=== PATIENT | female | born 1935 | race Caucasian/White ===

== ENCOUNTER 2017-10-15 09:31 | Observation (INO) ==
[2017-10-15] MEDS ORDERED: ASPIRIN 81 MG CHEWABLE TABLET PO ONE (09:36)
--- NOTE | 2017-10-15 09:39 | Emergency Department Report ---
Chest Pain HPI - General Stated Complaint: cp,left arm and neck aches Time Seen by Provider: 10/15/17 09:36 Source: patient, family Mode of arrival: ambulatory Limitations: no limitations - History of Present Illness HPI narrative: Patient is an 81-year-old female presents emergency room for evaluation of anterior chest pain with radiation to the neck and the left arm. Patient states these are the same symptoms she had greater than 10 years ago when she received her cardiac bypass. Symptoms started last night just before she went to bed however were very mild so she didn't think anything of it. This morning pain became sudden and severe 06/05 with radiation into her neck and left arm. Patient decided today to present to the ER for evaluation. Patient states pain is worse on movement and inspiration, no nausea or diaphoresis noted MD complaint: chest pain Occurred At: home Onset (ago): hour(s) Duration: constant Onset: during rest Pain location: substernal, left chest, right chest Severity: similar to previous episodes Severity scale (1-10): 10 Quality: aching Exacerbating factors: inspiration, movement - Related Data Home Medications Medication Instructions Recorded Confirmed Dabigatran Etexilate Mesylate 150 mg PO BID #0 02/25/16 08/07/17 [Pradaxa] raNITIdine HCl [Ranitidine HCl] 150 mg PO HS #0 02/25/16 08/07/17 Cholecalciferol (Vitamin D3) 1,000 unit PO DAILY 08/07/17 08/07/17 [Vitamin D3] Cyanocobalamin (Vitamin B-12) 2,500 mcg PO DAILY 08/07/17 08/07/17 [Vitamin B12] Duloxetine [Cymbalta] 60 mg PO DAILY 08/07/17 08/07/17 Gabapentin 300 mg PO HS PRN 08/07/17 08/07/17 Hydrocodone/APAP 5/325 [[place] 1 tab PO Q6H PRN 08/07/17 08/07/17 5/325] Metoprolol Tartrate [Lopressor] 25 mg PO BID 08/07/17 08/07/17 Mirtazapine [Remeron] 15 mg PO HS 08/07/17 08/07/17 Previous Rx's Medication Instructions Recorded Permethrin 5% Cream [Elimite] 60 gm TOP O #1 tube 08/07/17 Allergies Allergy/AdvReac Type Severity Reaction Status Date / Time Penicillins Allergy Unknown Verified 08/07/17 10:48 Iodinated Contrast- Oral and Allergy Swelling Verified 08/07/17 10:48 IV Dye Review of Systems Constitutional: Reports: weakness. Denies: fever, chills Eyes: Denies: eye pain, eye discharge ENT: Denies: throat pain, dental pain Cardiovascular: Reports: chest pain. Denies: palpitations Respiratory: Denies: cough, dyspnea, wheezes Gastrointestinal: Denies: abdominal pain, nausea, vomiting Genitourinary: Denies: urgency, dysuria Neurological: Reports: headache PFS Patient Stated Medical History Hearing Loss Yes Macular Degeneration Yes Coronary Artery Disease Yes Myocardial Infarction Yes Gastroesophageal Reflux Yes Disease Clotting Problems Yes: ON PRADAXA Other Infectious Yes: CURRENT BED BUGS Surgical History: Pacemaker - Social History Smoking status: Never smoker Substance use type: does not use Alcohol intake frequency: does not drink Physical Exam - General General appearance: alert, in no apparent distress - Eye Eye exam: Present: PERRL - ENT ENT exam: Present: normal oropharynx, mucous membranes moist - Neck Neck exam: Present: full ROM, trachea midline. Absent: tenderness - Chest Chest inspection: Present: symmetric chest wall rise, tenderness (patient is exquisitely tender to palpation of the costochondral cartilage on the anterior wall) - Respiratory Respiratory exam: Present: normal lung sounds bilaterally. Absent: respiratory distress, wheezes, stridor - Cardiovascular Cardiovascular exam: Present: regular rate, normal rhythm. Absent: normal heart sounds - Abdominal Exam Abdominal exam: Present: soft, normal bowel sounds. Absent: distention, tenderness - Back Exam Back exam: Present: normal inspection, full ROM. Absent: tenderness, CVA tenderness (R), CVA tenderness (L), muscle spasm, paraspinal tenderness - Skin Skin exam: Present: warm, dry - Neurological Exam Neurological exam: Present: alert, oriented X3 - Psychiatric Psychiatric exam: Present: normal affect, normal mood Chest Pain - Differential Diagnosis Likely: fracture of rib, pneumothorax, stable angina, unstable angina pectoris, atypical chest pain, st elevation myocardial infarction, costochondritis, chest pain, biliary colic Disposition Prescriptions: No Action raNITIdine HCl [Ranitidine HCl] 150 mg PO HS #0 Cyanocobalamin (Vitamin B-12) [Vitamin B12] 2,500 mcg PO DAILY Metoprolol Tartrate [Lopressor] 25 mg PO BID Duloxetine [Cymbalta] 60 mg PO DAILY Gabapentin 300 mg PO HS PRN PRN Reason: Prn Orders Mirtazapine [Remeron] 15 mg PO HS Dabigatran Etexilate Mesylate [Pradaxa] 150 mg PO BID #0 Cholecalciferol (Vitamin D3) [Vitamin D3] 1,000 unit PO DAILY Hydrocodone/APAP 5/325 [[place] 5/325] 1 tab PO Q6H PRN PRN Reason: Pain Permethrin 5% Cream [Elimite] 60 gm TOP O #1 tube
[2017-10-15] MEDS: SALINE FLUSH 10ml SYRINGE IVF PRN ×2 (09:44→11:07)
[2017-10-15] MEDS: NITROGLYCERIN 0.4 MG SUBLINGUAL TABLET SL PRN ×3 (10:03→10:21)
--- NOTE | 2017-10-15 10:28 | XRay Report ---
EXAM: XR chest 1V LOCATION OF DICTATION: [place] HISTORY: chest pain since last night COMPARISON: No prior studies available for comparison. FINDINGS: The heart size is normal. Left sided dual lead pacemaker. Postsurgical changes of median sternotomy The mediastinal configuration is within normal limits. There are no consolidating opacities or pleural effusions. There is no pneumothorax. The osseous structures are within normal limits for the patient's age. IMPRESSION: No acute cardiopulmonary abnormalities demonstrated. .
[2017-10-15] MEDS ORDERED: MORPHINE SULFATE 2mg INJECTION IVP ONE (11:00)
--- NOTE | 2017-10-15 13:34 | History & Physical Report ---
History of Present Illness Date: 10/15/17 Chief complaint: chest pain HPI: Humberto Garcia is an 81 year old woman who had mild sharp chest pain before bed in the evening of 10/14/17. She didn't think much about it (though states that she doesn't frequently have chest pain), and took one of her pain pills for fibromyalgia. Her pain went away, but returned this morning. It was a severe , sharp and unrelenting pain to both sides of her chest. The pain went to both arms, straight through to her back, and to her neck. She also had numbness and tingling in both arms. She felt short of breath as well. No diaphoresis or nausea/vomiting. She denies recent leg swelling or rapid weight gain. She denies PND. She's been under stress, as she relives the deaths of her siblings, 2 sons, and a grandson, frequently. She reports that she's been in good health and has not had fever/chills, cough/congestion, sore throat, abdominal pain, diarrhea, or dysuria. She had 17 falls a little over a month ago, and questions whether or not she passed out a couple of times. Since she moved in with a friend from [place] 1 month ago, however, she hasn't fallen at all. She presented to [facility] ED for evaluation on 10/15/18. After 3 NTG, her chest pain resolved. Workup for ACS was initially negative with no ST segment elevation on EKG and no troponin elevation. CXR was unremarkable. The ED physician contacted Dr. Gardner, and he recommended admission and serial troponin. She was admitted to [facility] under the hospitalist service. Review of Systems All systems PM: 10-point ROS was reviewed, no additional remarkable complaints except - Constitutional Constitutional: Present: as per HPI - EENMT Eyes: Present: other (legally blind) Nose: Absent: obstruction Mouth/Throat: Absent: sore throat, changes in swallowing - Cardiovascular Cardiovascular: Present: as per HPI Vascular: Present: see HPI - Respiratory Respiratory: Present: as per HPI - Gastrointestinal Gastrointestinal: Present: as per HPI, dyspepsia (takes a TUMS after each meal) - Genitourinary Genitourinary: Present: as per HPI - Musculoskeletal Musculoskeletal: Present: as per HPI - Integumentary/Breasts Integumentary: Present: rash (healing "bed bug bites" to back and forearms) - Neurological Neurological: Present: as per HPI - Psychiatric Psychiatric: Present: depression - Endocrine Endocrine: Absent: palpitations - Hematologic/Lymphatic Hematologic/Lymphatic: Present: easy bleeding - Allergic/Immunologic Allergic/Immunologic: Absent: seasonal rhinorrhea Past Medical History CAD, history of [place] A-fib, on Pradaxa GERD Fibromyalgia Legally blind; macular degeneration Surgical History: CABG x3 ~2008. Pacemaker for bradycardia. Appendectomy. c- section x2 Family History Updates: Mother at age 59 of a heart attack. Her father at age 80 of heart problems. There were 6 siblings in all, and 2 still living. Her oldest brother of an unknown cause. Her oldest sister of a stroke. A brother of stomach cancer, and another brother from a car accident. She had 2 sons. 1 at age 20 of EtOH abuse, and the other at age 20 of a car accident. She also lost a grandson to suicide. - Social History Smoking status: Never smoker Substance use type: does not use Alcohol intake frequency: does not drink Current occupational status: retired Social history: PCP: Dr. Chacorta Jacobo Medications Home Medications Medication Instructions Recorded Confirmed Type Cyanocobalamin (Vitamin B-12) 2,500 mcg PO HS 08/07/17 10/15/17 History [Vitamin B12] Duloxetine [Cymbalta] 60 mg PO DAILY 08/07/17 10/15/17 History Gabapentin 300 mg PO HS PRN 08/07/17 10/15/17 History Hydrocodone/APAP 5/325 [[place] 1 tab PO Q6H PRN 08/07/17 10/15/17 History 5/325] Metoprolol Tartrate [Lopressor] 25 mg PO BID 08/07/17 10/15/17 History Mirtazapine [Remeron] 15 mg PO HS 08/07/17 10/15/17 History Cholecalciferol (Vitamin D3) 1,000 unit PO BID 10/15/17 10/15/17 History [Vitamin D3] Dabigatran [Pradaxa] 150 mg PO BID 10/15/17 10/15/17 History Diclofenac [Voltaren] 1 applicatio TOP BID 10/15/17 10/15/17 History raNITIdine HCl [Ranitidine HCl] 150 mg PO HS 10/15/17 10/15/17 History Allergies Allergy/AdvReac Type Severity Reaction Status Date / Time Penicillins Allergy Unknown Verified 08/07/17 10:48 Iodinated Contrast- Oral and Allergy Swelling Verified 08/07/17 10:48 IV Dye Exam Vital Signs: Temperature 97.8 F 10/15/17 09:33 Pulse Rate 69 10/15/17 13:00 Respiratory Rate 27 H 10/15/17 13:00 Blood Pressure 117/66 10/15/17 12:30 Pulse Oximetry 94 10/15/17 13:00 - Constitutional Present: no acute distress, well nourished, well developed - Routine HEENT Exam Head: Present: normocephalic ENT: Present: oropharynx clear - Routine Neck Exam Present: supple - Routine Respiratory Exam Present: decreased breath sounds, CTA bilaterally - Routine Cardiovascular Exam Present: RRR, S1, S2 - Routine Abdominal Exam Present: soft, normoactive bowel sounds, non distended, non tender - Routine Extremities Exam Present: no edema, pulses intact - Routine Skin Exam Present: intact, dry, warm Comments: healing scabs to back, forearms from "bed bugs" - Routine Neurological Exam Present: alert, oriented X3, moving all extremities, normal speech - Routine Psychiatric Exam Present: normal affect, normal thought process, cooperative Results - Labs CBC & Chem 7: 10/15/17 09:56 10/15/17 09:55 - ECG Data Tracing #1 I reviewed this ECG and interpreted as documented below: Irregular underlying rhythm with visible pacemaker spikes RBBB Nonspecific T wave changes but no ST elevation/depression - Imaging and Cardiology Chest x-ray Status: image reviewed by me (no acute findings) Assessment and Plan (1) Chest pain Current visit: Yes Status: Acute Assessment and Plan: IMPRESSION Chest pain, resolved after 3 NTG CAD, history of [place] A-fib, on Pradaxa GERD - on Ranitidine HS + Tums after meals Fibromyalgia Legally blind; macular degeneration PLAN Admit, observation status under the hospitalist service. Monitor on telemetry, trend troponin. Labs and VS on admission were stable. NTG PRN recurrent pain. Resume home medications. Code status: DNR. Discussed with Dr. Hooper. DVT Prophylaxis: Pradaxa GI Prophylaxis: Rantidine Resuscitation Status: Do Not Resuscitate - Physician Narrative Physician: aKssandra Hooper MD Narrative: Date: 10/15/17 Time: 1809 I have independently evaluated and examined this patient. I reviewed the chart, the patient's history, and the CASTING COORDINATOR/PA's documented findings as above. We discussed and formulated the assessment and plan as above with additions as below: Mrs. Garcia presents with chest pain originating around her pacemaker site and extending diffusely across the upper chest and into both arms with some difficulty breathing but no diaphoresis or nausea. Pain was relieved overnight with a pain pill was present again this morning prompting ER evaluation. Chest x -ray demonstrated no acute changes and was primarily atrially paced although there were occasional spontaneous beats, probable underlying atrial fibrillation. Initial troponin was unremarkable and she is hospitalized for serial enzymes. The patient is pleasantly confused and talkative, vital signs are unremarkable and she is oxygenating well on room air Respirations are nonlabored, airflow diminished but breath sounds are clear and there is no wheezing Regular rhythm, S1-S2 Chest wall is tender to palpation especially medial to the pacemaker but there is mild generalized tenderness along the costochondral margins Abdomen benign; minor edema right lower extremity without edema left lower extremity Troponin <0.012 x 2 Chest x-ray reviewed by myself demonstrates dual-chamber pacemaker, normal- sized heart, clear lung schaeffer. EKG as previously stated Serial enzymes to be obtained, check a d-dimer with the next labs-patient denied pleuritic pain. Exam consistent with chest wall pain and patient clearly differentiates pain she experienced last night/today from cardiac pain she experienced several years ago. Hospital Course Summary Disclaimer: The visit summary below is not to be considered part of the above Progress Note. Hospital Course: 10/15/17 Admit, observation status under the hospitalist service. Monitor on telemetry, trend troponin. Labs and VS on admission were stable. NTG PRN recurrent pain. Resume home medications. Code status: DNR.
[2017-10-15 13:49] VITALS: BMI 27.3
[2017-10-15] MEDS ORDERED: GABAPENTIN 300 MG CAPSULE PO PRN (14:00)
[2017-10-15] MEDS ORDERED: HYDROCODONE/APAP 5mg/325mg TABLET PO PRN (14:00)
[2017-10-15] MEDS ORDERED: NITROGLYCERIN 0.4 MG SUBLINGUAL TABLET SL PRN (14:06)
[2017-10-15] MEDS ORDERED: CALCIUM CARBONATE Chewable 500mg TABLET PO PRN (14:07)
[2017-10-15] MEDS: DICLOFENAC 1% TOP GEL 100gm TP SCH (20:38)
[2017-10-15] MEDS ORDERED: RANITIDINE 150 MG TABLET PO SCH (21:00)
[2017-10-15] MEDS ORDERED: MIRTAZAPINE 15 MG TABLET PO SCH (21:00)
[2017-10-16 07:44] VITALS: BP 138/65; RESP 15; TEMP 97.9; O2SAT 96
[2017-10-16] MEDS: DICLOFENAC 1% TOP GEL 100gm TP SCH (08:11)
[2017-10-16] MEDS ORDERED: DULOXETINE 60 MG CAPSULE PO SCH (09:00)
[2017-10-16 10:24] VITALS: PULSE 69
--- NOTE | 2017-10-16 10:31 | Discharge Summary ---
Discharge Information Date of admission: 10/15/17 12:56 Anticipated date of discharge: 10/16/17 Attending Physician: Angelica Pavon MD Primary care physician: Chacorta Jacobo MD - Discharge Diagnosis (1) Chest pain Status: Acute Chest pain, neg serial troponins CAD, history of [place] A-fib, on Pradaxa GERD - on Ranitidine HS + Tums after meals Fibromyalgia Legally blind; macular degeneration - Laboratory Labs: D-Dimer 10/16/17 04:11 D-Dimer < 150 Troponin 10/15/17 10/15/17 10/15/17 09:55 15:58 21:46 Troponin I < 0.012 < 0.012 < 0.012 BNP 10/15/17 09:55 B-Natriuretic Peptide 279 H CBC 10/15/17 09:56 WBC 6.5 RBC 3.88 L Hgb 12.5 Hct 39.4 MCV 101.5 H MCH 32.2 MCHC 31.7 Plt Count 288 CMP 10/15/17 09:55 Sodium 144 Potassium 3.9 Chloride 102 Carbon Dioxide 32 H Anion Gap 10 BUN 22.0 H Creatinine 1.1 GFR Calculation 47 BUN/Creatinine Ratio 20 Glucose 112 H Calculated Osmolality 281 H Calcium 9.5 AST 18 ALT 15 - Radiology Radiology: Date of Exam: 10/15/17 EXAM: XR chest 1V HISTORY: chest pain since last night FINDINGS: The heart size is normal. Left sided dual lead pacemaker. Postsurgical changes of median sternotomy The mediastinal configuration is within normal limits. There are no consolidating opacities or pleural effusions. There is no pneumothorax. The osseous structures are within normal limits for the patient's age. IMPRESSION: No acute cardiopulmonary abnormalities demonstrated. History of Present Illness HPI: Humberto Garcia is an 81 year old woman who had mild sharp chest pain before bed in the evening of 10/14/17. She didn't think much about it (though states that she doesn't frequently have chest pain), and took one of her pain pills for fibromyalgia. Her pain went away, but returned this morning. It was a severe , sharp and unrelenting pain to both sides of her chest. The pain went to both arms, straight through to her back, and to her neck. She also had numbness and tingling in both arms. She felt short of breath as well. No diaphoresis or nausea/vomiting. She denies recent leg swelling or rapid weight gain. She denies PND. She's been under stress, as she relives the deaths of her siblings, 2 sons, and a grandson, frequently. She reports that she's been in good health and has not had fever/chills, cough/congestion, sore throat, abdominal pain, diarrhea, or dysuria. She had 17 falls a little over a month ago, and questions whether or not she passed out a couple of times. Since she moved in with a friend from [place] 1 month ago, however, she hasn't fallen at all. She presented to [facility] [place] [facility] for evaluation on 10/15/18. After 3 NTG, her chest pain resolved. Workup for ACS was initially negative with no ST segment elevation on EKG and no troponin elevation. CXR was unremarkable. The ED physician contacted Dr. Gardner, and he recommended admission and serial troponin. She was admitted to [facility] [place] under the hospitalist service. Objective Vital signs: Temperature 97.9 F 10/16/17 07:42 Pulse Rate 69 10/16/17 08:00 Respiratory Rate 15 10/16/17 07:42 Blood Pressure 138/65 10/16/17 07:42 Pulse Oximetry 96 10/16/17 07:42 Height/Weight/BMI: Height 1.63 m Weight 72 kg Body Mass Index 27.3 - Constitutional Present: no acute distress, well nourished, well developed - Routine HEENT Exam Head: Present: normocephalic, atraumatic - Routine Respiratory Exam Present: CTA bilaterally. Absent: wheezes - Routine Cardiovascular Exam Present: RRR, no murmur - Routine Abdominal Exam Present: soft, non distended, non tender - Routine Extremities Exam Present: no edema, normal capillary refill - Routine Skin Exam Present: dry, warm - Routine Neurological Exam Present: alert, oriented X3 has some memory deficits - will talk about a son and use her grandson's name - Routine Lymphatic Exam Lymphatic: Absent: adenopathy - Routine Psychiatric Exam Present: normal affect, cooperative Hospital Course This is a general summary of the patient's hospital course. For more details refer to the complete medical record. Hospital course: 10/15/17 Admit, observation status under the hospitalist service for r/o chest pain Monitor on telemetry, trend troponin. Labs and VS on admission were stable. NTG PRN recurrent pain. Resume home medications. Code status: DNR. 10/16/17 Patient reports she's had no pain this morning. Her troponins were all negative. Telemetry-100% paced, rate 73. She required some pain medicine overnight, but she reports this was due to back pain related to the bed she was sleeping in. Dismiss home today with plan to f-u with PCP within a week. Report any further CP to PCP or ER. Time spent with patient: discharge greater than 30 minutes Resuscitation Status: Do Not Resuscitate Discharge Plan - Discharge Disposition Discharge Date: 10/16/17 Disposition: Discharged Home, Self-Care *Condition: Stable Reason For Visit (Visit label in EMR): chest pain - Discharge Medications *Discharge Medications: Continue Cyanocobalamin (Vitamin B-12) [Vitamin B12] 2,500 mcg PO HS Metoprolol Tartrate [Lopressor] 25 mg PO BID Duloxetine [Cymbalta] 60 mg PO DAILY Gabapentin 300 mg PO HS PRN PRN Reason: Prn Orders Mirtazapine [Remeron] 15 mg PO HS Cholecalciferol (Vitamin D3) [Vitamin D3] 1,000 unit PO BID Hydrocodone/APAP 5/325 [[place] 5/325] 1 tab PO Q6H PRN PRN Reason: Pain Permethrin 5% Cream [Elimite] 60 gm TOP O #1 tube raNITIdine HCl [Ranitidine HCl] 150 mg PO HS Dabigatran [Pradaxa] 150 mg PO BID Diclofenac [Voltaren] 1 applicatio TOP BID - Discharge Packet/Instructions *Diet: Heart healthy diet *Activity: As tolerated *Pain Management/Treatment: n/a *Wound Care: n/a *Expected Signs/Symptoms: n/a *Notify Physician if: You have return of chest pain or shortness of breath *During Business Hours Contact: Dr Jacobo *After Business Hours Contact: Dr Jacobo and follow after hours instructions. *Pending Lab/Results: No Pending Lab - Referrals/Follow Up *Referrals/Follow Up: Ainsley Jacobo MD [Physician] - (See Dr. Jacobo later this week or early next week. ) - Patient Handouts Patient Handouts: Chest Pain (DC) - Dismissal Complete Discharge Instructions are:: Complete Physician Narrative - Narrative Physician: other (Angelica Pavon MD ) Attestation Narrative: Date: 10/16/17 Time: 3120 I have independently evaluated and examined this patient. I reviewed the chart, the patient's history, and the SHADE BANDER/PA's documented findings as above. We discussed and formulated the assessment and plan as above with additions as below: Patient reports feeling much better today. She feels ready to go home. Her biggest complaint is having thickened liquids. Breathing comfortably with no distress, lungs clear. Plan for discharge today with Augmentin to complete 7 day course of abx for pna.
== END 2017-10-16 11:00 | disposition home or self-care (01) ==
LOC: ED 09:31 → INTOOBSV 12:56 → SRG 12:56 → SUATTDRO 12:56 → SRG 13:25
PROVIDERS: ADMIT Internal Medicine; ATTEND Pediatrics